=== PATIENT | male | born 1980 | race African-American/Black ===

== ENCOUNTER 2019-04-15 09:55 | Emergency (ER) | payer SELFPAY ==
[2019-04-15 10:43] VITALS: BP 179/120
[2019-04-15] MEDS ORDERED: ACETAMINOPHEN 325 MG TABLET PO ONE (10:43)
[2019-04-15] MEDS ORDERED: PENICILLIN V POTASSIUM 500 MG TABLET PO ONE (10:43)
--- NOTE | 2019-04-15 10:49 | ER Document Report ---
ED Head/Face/Scalp Injury - General Chief Complaint: Facial Swelling Stated Complaint: FACIAL SWELLING Time Seen by Provider: 04/15/19 10:37 Primary Care Provider: WILLIE KING MD [Primary Care Provider] - Follow up as needed Mode of Arrival: Ambulatory Information source: Patient TRAVEL OUTSIDE OF THE [place] IN LAST 30 DAYS: No - HPI Patient complains to provider of: Swelling Notes: Patient here with complaints of left jaw swelling for the last 5 days. Seems to be getting somewhat worse. Today while he was at work a wrench fell and hit him in this area which made the pain much worse. No fevers. No difficulty breathing or swelling. Pain is moderate, constant, worse with opening his mouth and touching the area, better with rest. No fevers. No nausea, vomiting, diarrhea. No difficulty breathing or swallowing. No chest pain or shortness of breath. No rash. There was no traumatic injury. No headache or blurred vision. No numbness, tingling, weakness. Patient has a history of hypertension, he states that he lost his insurance so therefore he has not been seen by her primary care doctor and does not take his lisinopril because he does not have insurance. No hypertensive symptoms at this time. No other complaints at this time. - Related Data Allergies/Adverse Reactions: gabapentin [Gabapentin] Adverse Reaction (Verified 09/22/15 10:03) Past Medical History - Social History Smoking Status: Current Every Day Smoker Chew tobacco use (# tins/day): No Frequency of alcohol use: None Drug Abuse: None Family History: CAD - chf, DM, Hypertension Patient has suicidal ideation: No Patient has homicidal ideation: No - Past Medical History Cardiac Medical History: Reports: Hx Hypertension, Hx Heart Murmur Neurological Medical History: Reports: Hx Migraine Renal/ Medical History: Denies: Hx Peritoneal Dialysis Musculoskeletal Medical History: Reports Hx Arthritis - Immunizations Immunizations up to date: Yes Hx Diphtheria, Pertussis, Tetanus Vaccination: Yes - 2012 Review of Systems - Review of Systems -: Yes All other systems reviewed and negative Physical Exam - Vital signs Vitals: Temp Pulse Resp BP Pulse Ox 98.3 F 100 16 179/120 H 99 04/15/19 09:59 04/15/19 09:59 04/15/19 09:59 04/15/19 09:59 04/15/19 09:59 - Notes Notes: GENERAL: alert, cooperative, nontoxic, no distress. HEAD: normocephalic, atraumatic EYES: conjunctiva pink without discharge, no external redness or swelling. EARS: no external swelling, no external redness NOSE: atraumatic, no external swelling MOUTH/THROAT: mucous membranes moist and pink. Widespread dental decay. Multiple missing teeth. Left jaw swelling with some mild tenderness to palpation. No drainable abscess with in the gums. When I press on the cheek I do see purulent drainage coming out along his left third molar. No sublingual swelling or induration. Posterior pharynx normal with no peritonsillar abscess. NECK: soft, supple, full range of motion, no meningismus. CHEST: no distress, lungs clear and equal throughout. No wheezing, rales, rhonchi. CARDIAC: regular rate and rhythm, no murmur, normal capillary refill, normal pulses. BACK: full range of motion, no CVA tenderness. EXTREMITIES: full range of motion of all extremities. No redness, no swelling. NEURO: alert and oriented 3, no focal deficits, full range of motion of all extremities. PYSCH: appropriate mood, affect. Patient is cooperative. SKIN: pink, warm, dry, no rash. Course - Re-evaluation Re-evalutation: 04/15/19 10:46 Patient is nontoxic-appearing with stable vitals. Patient here with complaints of swelling to the left jaw for the last 4 to 5 days. No fevers. No difficulty breathing or swallowing. On exam he is noted to have some mild swelling with what is likely dental abscess. As I push on the left cheek I was able to see some purulent drainage leaking along the left third molar of the lower jaw. I do not see any drainable abscess. There is no sign of Kalyan's angina with no sublingual swelling or induration. He is in no distress. Patient will be given antibiotics instructions to apply warm compresses. He will be given a prescription for [place] to take as needed for pain. He is instructed to continue taking ibuprofen as well for pain. Follow-up with a dentist at the next available appointment, return the emergency department for worsening pain, swelling, difficulty breathing or swelling, persistent vomiting, or for any further concerns. The patient's emergency department workup and current diagnosis were explained to the patient and or family. Follow-up instructions were provided. Medications if prescribed were discussed. Instructions for when to return to the emergency department including specific worrisome symptoms were discussed with the patient and/or family. - Vital Signs Vital signs: Temp Pulse Resp BP Pulse Ox 98.3 F 100 16 179/120 H 99 04/15/19 09:59 04/15/19 09:59 04/15/19 09:59 04/15/19 09:59 04/15/19 09:59 Discharge - Discharge Clinical Impression: Dental abscess Hypertension Qualifiers: Hypertension type: unspecified Qualified Code(s): I10 - Essential (primary) hypertension Condition: Stable Disposition: HOME, SELF-CARE Instructions: Abscess ([facility]), Dental Infection or Abscess ([facility]), High Blood Pressure ([facility]) Additional Instructions: Take medications as prescribed. Apply warm compresses to the sore area. Follow-up with a dentist at the next available appointment. Follow-up with primary care regarding her blood pressure. Follow-up sooner for any worsening symptoms, high fever, difficulty breathing or swelling, persistent vomiting, or for any further concerns. Prescriptions: Hydrocodone/Acetaminophen [[place] 5-325 mg Tablet] 2 tab PO Q6H PRN #15 tab PRN Reason: Lisinopril 20 mg PO DAILY #30 tablet Penicillin V Potassium [Penicillin Vk 500 mg Tablet] 500 mg PO QID #40 tablet Forms: Elevated Blood Pressure, Smoking Cessation Education, Return to Work Referrals: WILLIE KING MD [Primary Care Provider] - Follow up as needed [facility] [Provider Group] - Follow up as needed [facility] [Provider Group] - Follow up as needed
== END 2019-04-15 10:52 | disposition home or self-care (01) ==
LOC: ER 09:55
DX: K04.7 Periapical abscess without sinus (principal); I10 Essential (primary) hypertension; R22.0 Localized swelling, mass and lump, head; W22.8XXA Striking against or struck by other objects, initial encounter
CPT/HCPCS: 99282